=== PATIENT | male | born 2000 | race American Indian/Alaskan Native ===

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

== ENCOUNTER 2021-05-27 06:01 | Emergency (ER) | payer BC, MEDICAID ==
[2021-05-27] MEDS ORDERED: ALBUTEROL 2.5 MG/3 ML NEBU IH ONE (08:17)
[2021-05-27] MEDS ORDERED: IPRATROPIUM 0.02% NEBU 2.5 ML IH ONE (08:18)
[2021-05-27] MEDS ORDERED: methylPREDNISolone Sod Succinate 125 MG/2 ML INJ IM ONE (09:42)
--- NOTE | 2021-05-27 09:50 | Emergency Department Report ---
ED Shortness of Breath HPI - General Chief Complaint: Dyspnea/Respdistress Stated Complaint: SOB Source: patient Mode of arrival: Ambulatory Limitations: No Limitations - History of Present Illness Initial Comments: 21-year-old male presents to the ED complaining of shortness of breath this a.m.. Patient states that he has a history of asthma and currently out of his albuterol inhaler. Patient is alert and oriented x3. No acute distress noted. No ill appearance noted. Patient denies any chest pain or abdominal pain at present time. MD Complaint: shortness of breath -: This morning Improves With: nothing Worsens With: nothing Known History Of: asthma Associated Symptoms: denies other symptoms - Related Data Home Oxygen Therapy: No Previous Rx's Medication Instructions Recorded Last Taken Type ALBUTEROL NEB's [Proventil 0.083% 2.5 mg IH TID PRN #1 box 02/19/18 Unknown Rx NEBS] Triamcinolone Acetonide 1 applic TP Q12H #1 tube 05/14/20 Unknown Rx [Triamcinolone Acetonide Oint 0.5%] diphenhydrAMINE [Benadryl CAP] 25 mg PO Q6HR PRN #30 capsule 05/14/20 Unknown Rx Albuterol Mdi (or & Nicu Only) 2 puff IH QID PRN #1 inhalation 10/14/20 Unknown Rx [ProAir HFA Inhaler] Prednisone [predniSONE 5 mg (6-Day 5 mg PO .TAPER #1 tab.ds.pk 10/14/20 Unknown Rx Pack, 21 Tabs)] Albuterol Mdi (or & Nicu Only) 2 puff IH QID PRN 5 Days #8.5 gram 05/27/21 Unknown Rx [ProAir HFA Inhaler] predniSONE [Deltasone] 50 mg PO QDAY 3 Days #3 tab 05/27/21 Unknown Rx Allergies Allergy/AdvReac Type Severity Reaction Status Date / Time seafood Allergy Swelling Uncoded 10/14/20 15:25 ED Review of Systems ROS: Stated complaint: SOB Other details as noted in HPI Constitutional: denies: chills, fever Eyes: denies: eye pain, eye discharge, vision change ENT: denies: ear pain, throat pain Respiratory: shortness of breath, wheezing. denies: cough Cardiovascular: denies: chest pain, palpitations Endocrine: no symptoms reported Gastrointestinal: denies: abdominal pain, nausea, diarrhea Genitourinary: denies: urgency, dysuria Musculoskeletal: denies: back pain, joint swelling, arthralgia Skin: denies: rash, lesions Neurological: denies: headache, weakness, paresthesias Psychiatric: denies: anxiety, depression Hematological/Lymphatic: denies: easy bleeding, easy bruising ED Past Medical Hx - Past Medical History Previous Medical History?: Yes Hx Asthma: Yes (as child) Additional medical history: Eczema - Surgical History Past Surgical History?: No - Social History Smoking Status: Never Smoker Substance Use Type: Marijuana - Medications Home Medications: Home Medications Medication Instructions Recorded Confirmed Last Taken Type ALBUTEROL NEB's [Proventil 0.083% 2.5 mg IH TID PRN #1 box 02/19/18 Unknown Rx NEBS] Triamcinolone Acetonide 1 applic TP Q12H #1 tube 05/14/20 Unknown Rx [Triamcinolone Acetonide Oint 0.5%] diphenhydrAMINE [Benadryl CAP] 25 mg PO Q6HR PRN #30 capsule 05/14/20 Unknown Rx Albuterol Mdi (or & Nicu Only) 2 puff IH QID PRN #1 inhalation 10/14/20 Unknown Rx [ProAir HFA Inhaler] Prednisone [predniSONE 5 mg (6-Day 5 mg PO .TAPER #1 tab.ds.pk 10/14/20 Unknown Rx Pack, 21 Tabs)] Albuterol Mdi (or & Nicu Only) 2 puff IH QID PRN 5 Days #8.5 gram 05/27/21 Unknown Rx [ProAir HFA Inhaler] predniSONE [Deltasone] 50 mg PO QDAY 3 Days #3 tab 05/27/21 Unknown Rx ED Physical Exam - General Limitations: No Limitations General appearance: alert, in no apparent distress - Head Head exam: Present: atraumatic, normocephalic - Eye Eye exam: Present: normal appearance - ENT ENT exam: Present: mucous membranes moist - Neck Neck exam: Present: normal inspection - Respiratory Respiratory exam: Present: normal lung sounds bilaterally, wheezes. Absent: respiratory distress - Cardiovascular Cardiovascular Exam: Present: regular rate, normal rhythm. Absent: systolic murmur, diastolic murmur, rubs, gallop - GI/Abdominal GI/Abdominal exam: Present: soft, normal bowel sounds - Rectal Rectal exam: Present: deferred - Extremities Exam Extremities exam: Present: normal inspection - Back Exam Back exam: Present: normal inspection - Neurological Exam Neurological exam: Present: alert, oriented X3 - Psychiatric Psychiatric exam: Present: normal affect, normal mood - Skin Skin exam: Present: warm, dry, intact, normal color. Absent: rash ED Course Vital Signs 05/27/21 05/27/21 05/27/21 06:07 08:00 11:01 Temperature 97.7 F 98.0 F Pulse Rate 107 H 73 Respiratory 22 17 15 Rate Blood Pressure 146/89 Blood Pressure 110/63 [Right] O2 Sat by Pulse 94 97 100 Oximetry ED Medical Decision Making - Medical Decision Making 21-year-old male presents to the ED complaining of shortness of breath this a.m.. Patient states that he has a history of asthma and currently out of his albuterol inhaler. Patient is alert and oriented x3. No acute distress noted. No ill appearance noted. Patient denies any chest pain or abdominal pain at present time. Physical examination unremarkable at time of discharge patient had no futher wheezing noted. Patient was given albuterol and Atrovent treatment in the ED. 2-view chest x-ray showed no abnormality. Rechecked the patient is resting quietly quietly and comfortable and feeling better. I discussed the results of diagnostic study, my clinical impression and the plan for further treatment with the patient. Patient agrees with plan and discharge at this present time. All question addressed. I have given the patient instruction regarding a diagnosis ,expectation ,follow- up and return precaution. I explained to the patient that emergent condition may arise and to return to the ED for new worsen and any new persisting condition. I have explained the importance of following up with the primary care physician or referral physician listed below has instructed. The patient verbalized understanding of discharge instruction. Critical care attestation.: If time is entered above; I have spent that time in minutes in the direct care of this critically ill patient, excluding procedure time. ED Disposition Clinical Impression: Asthma exacerbation Qualifiers: Asthma severity: mild Asthma persistence: intermittent Qualified Code(s): J45.21 - Mild intermittent asthma with (acute) exacerbation Disposition: HOME / SELF CARE / HOMELESS Is pt being admited?: No Does the pt Need Aspirin: No Condition: Stable Instructions: Asthma, Adult Additional Instructions: Take medication as prescribed Return to ED for any worsening symptoms Prescriptions: predniSONE [Deltasone] 50 mg PO QDAY 3 Days #3 tab Albuterol Mdi (or & Nicu Only) [ProAir HFA Inhaler] 2 puff IH QID PRN 5 Days #8.5 gram PRN Reason: Shortness Of Breath Referrals: PRIMARY CARE, [Primary Care Provider] - 3-5 Days [facility] [Provider Group] - 3-5 Days Forms: Work/School Release Form(ED) Time of Disposition: 11:02
--- NOTE | 2021-05-27 10:23 | XRay Report ---
CHEST 2 VIEWS INDICATION: wheezing. COMPARISON: None FINDINGS: SUPPORT DEVICES: None. HEART: Within normal limits. LUNGS/PLEURA: No acute air space or interstitial disease. No pneumothorax. ADDITIONAL FINDINGS: None. IMPRESSION: 1. No acute findings. Signer Name: Chai Kent MD Signed: 05/27/2021 10:18 AM Workstation Name: [id number]
[2021-05-27 11:02] VITALS: BP 110/63
== END 2021-05-27 11:09 | disposition home or self-care (01) ==
LOC: ED 06:01
DX: J45.901 Unspecified asthma with (acute) exacerbation (principal); F12.90 Cannabis use, unspecified, uncomplicated; Z91.013 Allergy to seafood
CPT/HCPCS: 71046; 94640; 96372; 99283; J2930